=== PATIENT | female | born 1955 | race Caucasian/White ===

== ENCOUNTER 2016-10-23 20:40 | Emergency (ER) | payer OTHER, BC ==
[2008-08-30 12:42] VITALS: BP 116/82
[~2016-10-23] VITALS: Ht 175.3 cm; Wt 102.3 kg
[~2016-10-23 20:40] MED LIST: ASPI325T6 PO; ASPIR-LOW81 MG PO; AVALIDE; CALCIUM 600600 MG PO; CELEXA 20MG20 MG/TAB PO; COZAAR100 MG PO; DESYREL; DIOVAN160 MG PO; GLUCOPHAGE500 MG/TAB PO; GLUCOSAMINE & C1 CA1 PO; LOFIBRA134 MG PO; LORTAB 5/500 501 TAB PO; MAXZIDE; MVI; NEXIUM 40MG40 MG PO; NEXIUM40 MG PO; NORCO 325 MG-7.1 TAB PO; ROXICODONE 55 MG/TAB PO; SENOKOT8.6 MG PO; TOPROL XL100 MG PO; TOPROL XL50 MG PO; TYLENOL 500MG500 MG PO; ZOCOR 20MG20 MG PO
[2016-10-23 20:46] VITALS: TEMP 99.5
[2016-10-23 21:25] LABS: BASO # 0.1 (0.0-0.2); BASO % 0.9 % (0.0-2.0); EOS # 0.2 (0.0-0.7); EOS % 2.9 % (0-4.0); GRAN # 3.5 (1.4-6.5); GRAN % 53.8 % (42.2-75.2); HEMOGLOBIN 12.1 g/dl (12.5-16.0); LYMPH # 2.2 (1.2-3.4); LYMPH % 34.3 % (20.0-51.0); MEAN CELL VOLUME 88 fl (80.0-100.0); MEAN CORPUSCULAR HEMOGLOBIN 29 pg (27.0-31.0); MEAN CORPUSCULAR HGB CONC 33 g/dl (33.0-37.0); MEAN PLATELET VOLUME 11.3 fl (7.4-10.4); MONO # 0.5 (0.1-0.6); MONO % 7.8 % (1.7-9.3); PLATELET COUNT 228 K/mm3 (130-400); RED BLOOD COUNT 4.14 M/mm3 (4.10-5.30); REDCELL DISTRIBUTION WIDTH-CV 13.6 % (11.5-14.5); WHITE BLOOD COUNT 6.5 K/mm3 (4.8-10.8)
[2016-10-23 21:26] LABS: HEMATOCRIT 36.5 % (37.0-47.0)
[2016-10-23 21:34] LABS: CALCIUM 10.4 mg/dL (8.4-10.2); CREATININE, serum 0.97 mg/dL (0.52-1.25); POTASSIUM 3.9 mmol/L (3.4-5.0)
[2016-10-23 22:16] VITALS: BP 131/76; PULSE 73
[2016-10-23 22:23] LABS: ERYTHROCYTE SEDIMENTATION RATE 13 mm/hr (0-30)
== END 2016-10-23 22:51 | disposition home or self-care (01) ==
LOC: COL.ER 20:40
PROVIDERS: Emergency Medicine
DX: R51 Headache (principal)
CPT/HCPCS: J1200; J2765; Q9967

== ENCOUNTER → 2017-06-03 | Outpatient (CLI) | payer BC | LOC: MC.RAD 13:16 | DX: Z12.31 Encounter for screening mammogram for malignant neoplasm of breast (principal) ==

== ENCOUNTER → 2018-07-13 | Outpatient (CLI) | payer BC | LOC: MC.RAD 14:00 | DX: Z12.31 Encounter for screening mammogram for malignant neoplasm of breast (principal) ==

== ENCOUNTER → 2019-09-13 | Outpatient (CLI) | payer BC | LOC: MC.RAD 07-28 13:15 | DX: Z12.31 Encounter for screening mammogram for malignant neoplasm of breast (principal) ==

== ENCOUNTER → 2020-09-15 | Outpatient (CLI) | payer BC | LOC: MC.RAD 08:30 | DX: Z12.31 Encounter for screening mammogram for malignant neoplasm of breast (principal) ==

== ENCOUNTER → 2021-10-08 | Outpatient (CLI) | payer BC | LOC: MC.RAD 09-17 08:15 | DX: Z12.31 Encounter for screening mammogram for malignant neoplasm of breast (principal) ==

== ENCOUNTER → 2022-09-17 | Outpatient (CLI) | payer MEDICARE | LOC: MC.RAD 09:27 | DX: Z12.31 Encounter for screening mammogram for malignant neoplasm of breast (principal) ==

== ENCOUNTER 2023-12-08 09:12 | Emergency (ER) | payer MEDICARE ==
[~2023-12-08] VITALS: Ht 172.7 cm; Wt 100.9 kg
[2023-12-08 09:18] VITALS: TEMP 98
[2023-12-08] MEDS ORDERED: SENSIPAR30 MG PO (09:32)
[2023-12-08] MEDS ORDERED: FLONASEALLERGY NS (09:34)
[2023-12-08] MEDS ORDERED: PROTONIX 40MG T40 MG PO (09:35)
[2023-12-08] MEDS ORDERED: MASON NATURAL2000 IU PO (09:37)
[2023-12-08] MEDS ORDERED: HYDROCHLOROTH12.5 MG PO (09:37)
[2023-12-08] MEDS ORDERED: NS 1,000 ML IV ONE (09:45)
[2023-12-08] MEDS ORDERED: Loperamide 2 MG CAP PO ONE (09:45)
[2023-12-08] MEDS ORDERED: Ondansetron 4 MG/2 ML VIAL IV PRN (09:45)
[2023-12-08 09:48] LABS: BASO % 0.6 % (0.0-2.0); GRAN # 5.3 K/mm3 (1.4-6.5); GRAN % 76.9 % (42.2-75.2); HEMATOCRIT 40.1 % (37.0-47.0); HEMOGLOBIN 13.6 g/dl (12.5-16.0); LYMPH # 0.8 K/mm3 (1.2-3.4); LYMPH % 11.7 % (20.0-51.0); MEAN CELL VOLUME 88 fl (80.0-100.0); MEAN CORPUSCULAR HEMOGLOBIN 30 pg (27-31); MEAN CORPUSCULAR HGB CONC 34 g/dl (33.0-37.0); MEAN PLATELET VOLUME 11.1 fl (7.4-10.4); MONO # 0.7 K/mm3 (0.1-0.6); MONO % 10.2 % (1.7-9.3); PLATELET COUNT 276 K/mm3 (130-400); RED BLOOD COUNT 4.57 M/mm3 (4.10-5.30); REDCELL DISTRIBUTION WIDTH-CV 13.8 % (11.5-14.5)
[2023-12-08 10:02] LABS: ALBUMIN 4.1 g/dL (3.4-4.8); BILIRUBIN,TOTAL 0.5 mg/dL (0.2-1.2); CALCIUM 10.1 mg/dL (8.4-10.2); CREATININE, serum 1.17 mg/dL (0.57-1.11); POTASSIUM 4.1 mEq/L (3.5-4.5); TOTAL PROTEIN 8.1 g/dl (6.2-8.1)
[2023-12-08 11:45] LABS: COLLECTION METHOD CLEAN CATCH
[2023-12-08 11:58] LABS: URINE APPEARANCE CLOUDY (CLEAR/HAZY); URINE BLOOD NEGATIVE (NEGATIVE); URINE COLOR Dark Yellow (YELLOW); URINE GLUCOSE NEGATIVE (NEGATIVE); URINE KETONE NEGATIVE (NEGATIVE); URINE NITRATE NEGATIVE (NEGATIVE); URINE PROTEIN(semi-quant) NEGATIVE (NEGATIVE)
[2023-12-08 12:11] LABS: SQUAMOUS EPITHELIAL 0-2 /hpf (0-10); URINE BACTERIA OCCASIONAL /hpf (NONE SEEN)
[2023-12-08] MEDS ORDERED: ZOFRAN ODT4 MG PO (12:25)
[2023-12-08 12:46] VITALS: BP 138/73; PULSE 84
== END 2023-12-08 13:15 | disposition home or self-care (01) ==
LOC: COL.ER 09:12
PROVIDERS: Personal Emergency Response Attendant; Physician Assistant
DX: K52.9 Noninfective gastroenteritis and colitis, unspecified (principal); R79.89 Other specified abnormal findings of blood chemistry
CPT/HCPCS: J2405; J7030

== ENCOUNTER → 2023-12-18 | Outpatient (CLI) | payer MEDICARE ==
[2006-03-25 11:54] VITALS: BP 116/82; PULSE 156; TEMP 97.4
[~2023-12-18] MED LIST changes: +FLONASEALLERGY NS; +HYDROCHLOROTH12.5 MG PO; +MASON NATURAL2000 IU PO; +PROTONIX 40MG T40 MG PO; +SENSIPAR30 MG PO; +ZOFRAN ODT4 MG PO
== END ==
LOC: MC.RAD 08:53
DX: Z12.31 Encounter for screening mammogram for malignant neoplasm of breast (principal)